=== PATIENT | male | born 1995 | race American Indian/Alaskan Native ===

== ENCOUNTER 2018-09-15 20:25 | Emergency (ER) | payer BC, MEDICAID ==
[2018-09-15 20:29] VITALS: BP 147/94; PULSE 90
[2018-09-15] MEDS ORDERED: Diphtheria,Pertussis(Acell),Tetanus Vaccine 0.5 ML Syringe IM ONE (20:33)
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
== END 2018-09-15 23:36 | disposition home or self-care (01) ==
LOC: CC.ED 20:25
DX: M25.462 Effusion, left knee (principal); Z23 Encounter for immunization
CPT/HCPCS: 73562-LT; 73700-LT; 90471; 90715; 99284-25